=== PATIENT | male | born 1980 | race Caucasian/White ===

== ENCOUNTER → 2016-07-19 | Outpatient (REF) | payer OTHER ==
[2016-07-19 17:45] LABS: ALBUMIN 3.7 GM/DL (3.2-5.2); ALBUMIN/GLOBULIN RATIO 1.03 (1.00-1.93); ALKALINE PHOSPHATASE 96 U/L (45-117); ALT/SGPT 37 U/L (12-78); ANION GAP 11 MEQ/L (8-16); AST/SGOT 17 U/L (15-37); BILIRUBIN,TOTAL 0.4 MG/DL (0.2-1.0); BLOOD UREA NITROGEN 14 MG/DL (7-18); CALCIUM LEVEL 8.6 MG/DL (8.5-10.1); CARBON DIOXIDE LEVEL 25 MEQ/L (21-32); CHLORIDE LEVEL 106 MEQ/L (98-107); CHOLESTEROL LEVEL 147 MG/DL (<200); CREATININE FOR GFR 0.89 MG/DL (0.70-1.30); GLOMERULAR FILTRATION RATE > 60.0 (>60); GLUCOSE, FASTING 112 MG/DL (70-105); SODIUM LEVEL 142 MEQ/L (136-145); TOTAL PROTEIN 7.3 GM/DL (6.4-8.2); TRIGLYCERIDES LEVEL 80 MG/DL (<150)
== END ==
LOC: M SFHCCAPE 08:51
PROVIDERS: ATTEND Physician Assistant
DX: E11.9 Type 2 diabetes mellitus without complications (principal)

== ENCOUNTER → 2016-07-25 | Outpatient (CLI) | payer OTHER ==
--- NOTE | 2016-07-25 15:55 | REP ---
Clinical: Bilateral ankle pain . Technique: AP, lateral, bilateral oblique views of the right and left ankle . Findings: No acute fracture or dislocation. Skeletal structures and joint spaces are intact and normal. Ankle mortise appears stable. No subcutaneous emphysema or radiodense foreign body. Impression: Normal bilateral ankle radiograph series.
== END ==
LOC: M CLY 15:11
PROVIDERS: ATTEND Physician Assistant
DX: M25.571 Pain in right ankle and joints of right foot (principal)

== ENCOUNTER → 2016-10-10 | Outpatient (REF) | payer OTHER ==
[2016-10-10 18:59] LABS: ALBUMIN 4.1 GM/DL (3.2-5.2); ALBUMIN/GLOBULIN RATIO 1.21 (1.00-1.93); ALKALINE PHOSPHATASE 92 U/L (45-117); ALT/SGPT 38 U/L (12-78); ANION GAP 8 MEQ/L (8-16); AST/SGOT 18 U/L (15-37); BILIRUBIN,TOTAL 0.7 MG/DL (0.2-1.0); BLOOD UREA NITROGEN 17 MG/DL (7-18); CARBON DIOXIDE LEVEL 26 MEQ/L (21-32); CHLORIDE LEVEL 107 MEQ/L (98-107); CREATININE FOR GFR 0.84 MG/DL (0.70-1.30); GLOMERULAR FILTRATION RATE > 60.0 (>60); GLUCOSE, FASTING 100 MG/DL (70-105); POTASSIUM SERUM 4.2 MEQ/L (3.5-5.1); SODIUM LEVEL 141 MEQ/L (136-145); TOTAL PROTEIN 7.5 GM/DL (6.4-8.2)
[2016-10-10 20:42] LABS: PROLACTIN 6.9 NG/ML (2.1-17.7)
== END ==
LOC: M SFHCCAPE 11:54
PROVIDERS: ATTEND Physician Assistant
DX: E11.9 Type 2 diabetes mellitus without complications (principal); N52.9 Male erectile dysfunction, unspecified

== ENCOUNTER 2016-10-21 15:30 | Inpatient (IN) | payer OTHER ==
[~2016-10-21] VITALS: Ht 188 cm; Wt 130.2 kg
[2016-10-21] MEDS ORDERED: METF500T PO (15:41)
[2016-10-21] MEDS ORDERED: INVOKANA (15:41)
[2016-10-21] MEDS ORDERED: SERTRALINE (15:41)
[2016-10-21] MEDS ORDERED: LISIPOW (15:41)
[2016-10-21 16:46] LABS: MEAN CORPUSCULAR HEMOGLOBIN 29.6 pg (27.0-33.0); RED CELL DISTRIBUTION WIDTH 13.2 % (11.5-14.5); WHITE BLOOD COUNT 5.8 K/mm3 (4.0-10.0)
[2016-10-21 17:21] LABS: METHADONE URINE NEGATIVE (NEGATIVE)
[2016-10-21 17:32] LABS: ALBUMIN 3.7 GM/DL (3.2-5.2); ALBUMIN/GLOBULIN RATIO 1.12 (1.00-1.93); ALKALINE PHOSPHATASE 85 U/L (45-117); ALT/SGPT 32 U/L (12-78); ANION GAP 7 MEQ/L (8-16); AST/SGOT 15 U/L (15-37); BILIRUBIN,DIRECT 0.2 MG/DL (0.0-0.2); BILIRUBIN,TOTAL 0.5 MG/DL (0.2-1.0); BLOOD UREA NITROGEN 15 MG/DL (7-18); CALCIUM LEVEL 8.8 MG/DL (8.5-10.1); CARBON DIOXIDE LEVEL 26 MEQ/L (21-32); CHLORIDE LEVEL 108 MEQ/L (98-107); GLOMERULAR FILTRATION RATE > 60.0 (>60); GLUCOSE, FASTING 125 MG/DL (70-105); POTASSIUM SERUM 3.8 MEQ/L (3.5-5.1); SODIUM LEVEL 141 MEQ/L (136-145)
[2016-10-21] MEDS ORDERED: METF1000 PO (18:04)
[2016-10-21] MEDS ORDERED: SERT25TA PO (18:04)
[2016-10-21] MEDS ORDERED: LISI-542 PO (18:04)
[2016-10-21] MEDS ORDERED: INVO100T PO (18:04)
[2016-10-21 21:27] VITALS: BP 136/73
[2016-10-21] MEDS ORDERED: traZODone 50 MG TAB PO PRN (21:45)
[2016-10-21] MEDS ORDERED: MOM 30ML SUSPENSION UDC PO PRN (21:45)
[2016-10-21] MEDS ORDERED: MAALOX 30 ML SUSP *UDC PO PRN (21:45)
[2016-10-22 06:25] VITALS: BP 144/80
[2016-10-22] MEDS ORDERED: ENTER DRUG NAME HERE (PATIENT'S OWN MED) PO SCH (09:00)
[2016-10-22] MEDS: metFORMIN (GLUCOPHAGE) 1000 MG TABLET PO SCH ×2 (09:35→17:42)
[2016-10-22] MEDS: LISINOPRIL 5 MG TAB PO SCH (09:35)
[2016-10-22 18:00] VITALS: BP 130/60
[2016-10-22] MEDS: ACETAMINOPHEN TAB 650MG DOSE (2X325MG) PO PRN (21:12)
--- NOTE | 2016-10-23 03:41 | HPE ---
DATE OF ADMISSION: 10/21/2016 HISTORY OF PRESENT ILLNESS: Please refer to psychiatric history and evaluation for further details on this admission. This examination and history is intended for medical issues, which may need treatment, followup or consult on this 35-year-old male. PRIMARY CARE PROVIDER: [facility] [place]. ALLERGIES: 1. SHELLFISH. 2. IODINE. 3. LAMISIL. SOCIAL HISTORY: He is currently , but not living with his . Ethyl alcohol (EtOH) 2-4 times a week. Smokes none. Recreational drug use none. PAST MEDICAL HISTORY: 1. Cya-gmatvtm-qhuuwyept diabetes type 2. 2. Obstructive sleep apnea. 3. Hypertension. PAST SURGICAL HISTORY: 1. Oral surgery for wisdom teeth extraction. 2. Removal of genital warts. HOME MEDICATIONS: - metformin 1000 by mouth twice a day - Invokana 100 mg by mouth daily - lisinopril 5 mg by mouth daily - sertraline 25 mg by mouth daily FAMILY HISTORY: Noncontributory. LABORATORY STUDIES: CBC was normal. Sodium 141, potassium 3.8, chloride 108, BUN was 15, creatinine 0.90. Nonfasting glucose 125. Calcium 8.8. AST 15, ALT 32. TSH was 0.756. REVIEW OF SYSTEMS: 10-system review was done and other than a history of onychomycosis on his great right toenail and two smaller toes, which he has been treated for, he had no physical complaints. PHYSICAL EXAMINATION: 35-year-old cooperative male in no acute distress. Height 74 inches, weight 129 kg, body mass index (BMI) 36.5. Blood pressure 121/48, pulse 79, respirations 18, temperature 98.5. The patient is alert and oriented times three. Pupils equal and react to light. Extraocular muscles intact. Cornea and sclerae clear. Conjunctivae were normal. No facial asymmetry. Pharynx, tongue and gums pink and moist. Tongue is midline. Neck is supple without lymphadenopathy. No thyromegaly, no goiter. Carotids 2+ without bruit. Chest clear to auscultation without wheeze or retraction. Heart is regular. Abdomen is benign. Bowel sounds positive. Genitourinary/rectal: Not done. Extremities show equal strength, full range of motion. No cyanosis, clubbing or edema. Peripheral pulses equal and palpable bilaterally. Skin warm and dry. Few superficial lacerations left inner forearm. No redness or drainage. Cranial nerves III-XII grossly intact. EKG baseline ordered. IMPRESSION/PLAN: 1. Psychiatric plan per psychiatry. 2. History of obstructive sleep apnea. May use his own continuous positive airway pressure (CPAP). 3. Dcg-keckwug-ltmacmedv diabetes type 2. Continue metformin 1000 mg by mouth twice a day with meals, Invokana 100 mg daily. Fingerstick blood sugars twice a day. Consistent carbohydrate diet. 4. History of hypertension. Lisinopril 5 mg by mouth daily. No other acute medical issues.
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
[2016-10-23 06:54] VITALS: BP 128/77
[2016-10-23] MEDS: metFORMIN (GLUCOPHAGE) 1000 MG TABLET PO SCH ×2 (07:24→17:38)
[2016-10-23] MEDS: LISINOPRIL 5 MG TAB PO SCH (07:24)
[2016-10-23] MEDS: ACETAMINOPHEN TAB 650MG DOSE (2X325MG) PO PRN (07:25)
[2016-10-23] MEDS ORDERED: INFLUENZA QUADRIVALENT PF VACCINE 0.5ML SYRINGE/VIAL (90686) IM SCH (09:00)
[2016-10-23] MEDS: DIVALPROEX 500MG *ER* TAB PO SCH ×2 (09:57→21:33)
--- NOTE | 2016-10-23 12:10 | IPN ---
DATE: 10/23/2016 Mr. Galeana is a 35-year-old white male brought to the hospital with his and seen by the mobile crisis team. He has been exhibiting a lot of mood swings, pressured speech, anger outbursts and poor sleep. Mr. Galeana met with me today. He stated that in June his had passed out due to mold allergies. She is staying with friends according to him. He states he has been depressed most of his life. He has a history of superficial cutting of himself. He states his called the crisis hotline. He states he is lonely. He states he wanted to mutilate himself and kill himself. He states no one understands him. 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 He states he had been texting because he was "in a manic phase". He states he was texting his after he had left the movies at 2:00 in the morning. He states his big problem is he wants to control his and his paranoia over her friends. He states he has driven her friends away. MENTAL STATUS EXAMINATION: His speech is rapid. His thought process is scattered with circumferential and circumstantial thinking. He has some loose associations. He has some presence of paranoid thinking. His judgment is poor. His insight is poor. He is fully oriented. Recent and remote memory are intact. Attention and concentration are intact. Mood is dysphoric. Affect is congruent. He has a full fund of knowledge. IMPRESSION: Bipolar disorder, mixed type. Dr. Darnell ordered Seroquel 200 at bedtime and I have begun the patient on Depakote ER 500 twice a day.
[2016-10-23] MEDS: ENTER DRUG NAME HERE (PATIENT'S OWN MED) PO SCH (12:28)
[2016-10-23 18:00] VITALS: BP 118/69
--- NOTE | 2016-10-23 18:04 | ECGEPIP ---
Stationary ECG Study [facility] Test Date: 2016-10-23 Pat Name: CECILIO GREWAL Department: Room: [place] [address] Gender: M [employer]: : 1980 Requested By: Diamante Masters [facility] Order Number: [id number] Reading MD: Max Pretty Measurements Intervals Harvey Rate: 58 P: 32 DE: 195 QRS: -16 QRSD: 119 T: 20 QT: 394 QTc: 390 Interpretive Statements Sinus bradycardia Left axis deviation Rule out prior IWMI No prior tracing for comparison Clinical correlation advised. Electronically Signed On 10-23-2016 18:03:56 EDT by Max Pretty
[2016-10-23] MEDS: QUEtiapine FUMARATE **XR** 200MG TABLET PO SCH (21:34)
[2016-10-24 06:38] VITALS: BP 123/69
[2016-10-24] MEDS: ENTER DRUG NAME HERE (PATIENT'S OWN MED) PO SCH (07:51)
[2016-10-24] MEDS: metFORMIN (GLUCOPHAGE) 1000 MG TABLET PO SCH ×2 (07:51→17:19)
[2016-10-24] MEDS: DIVALPROEX 500MG *ER* TAB PO SCH (07:51)
[2016-10-24] MEDS: LISINOPRIL 5 MG TAB PO SCH (07:52)
[2016-10-24] MEDS ORDERED: DIVALPROEX 500MG *ER* TAB PO ONE (09:00)
[2016-10-24] MEDS ORDERED: DIVALPROEX 500MG *ER* TAB PO SCH (09:00)
--- NOTE | 2016-10-24 11:19 | IPN ---
DATE OF SERVICE: 10/24/2016 Mr. Galeana states today that he is feeling sad. He states last night, he felt he was high. His thoughts were racing, and he was essentially dancing. Today, he feels depressed. I discussed this with him. I have increased his Depakote to 1000 in the morning, the appropriate way to give Depakote ER, and , I will get a blood level. MENTAL STATUS EXAMINATION: His speech is less rapid. His thought process is slow. He does not have circumferential or circumstantial thinking today. No loose associations. He is fully oriented. Recent and remote memory are intact. Attention and concentration are intact. Mood is sad. Affect is congruent. He has a full fund of knowledge. IMPRESSION: Bipolar, mixed type, rapid cycling.
[2016-10-24 18:00] VITALS: BP 121/66
[2016-10-24] MEDS: QUEtiapine FUMARATE **XR** 200MG TABLET PO SCH (21:15)
[2016-10-25 06:41] VITALS: BP 128/68
[2016-10-25] MEDS: metFORMIN (GLUCOPHAGE) 1000 MG TABLET PO SCH ×2 (07:51→17:12)
[2016-10-25] MEDS: ENTER DRUG NAME HERE (PATIENT'S OWN MED) PO SCH (09:00)
[2016-10-25] MEDS: DIVALPROEX 500MG *ER* TAB PO SCH (09:01)
[2016-10-25] MEDS: LISINOPRIL 5 MG TAB PO SCH (09:01)
--- NOTE | 2016-10-25 10:19 | IPN ---
DATE: 10/25/2016 I spoke with Stuart Galeana's today. She discussed how in the last few weeks Mr. Galeana had been out of control to the point of having some difficulties with his children and being reported to Child Protective Services (CPS). She stated if "he had not had a breakdown", she would have had him possibly arrested and filed protective orders. Mr. Galeana has been feeling sad. He has expressed that to some of the staff. He states he slept well. He continues on Depakote 1000 and we will be getting a blood level this Sunday. We will be monitoring his mood. MENTAL STATUS: Speech was less rapid. Thought processes were less slow. No circumferential or circumstantial thinking. No loose associations. Patient is fully oriented. Recent and remote memory are intact. Attention and concentration intact. Mood is sad. Affect is congruent. He has a full fund of knowledge. LABORATORY: CBC is unremarkable. Serum chemistries as described. Mildly increased fasting glucose. Toxicology screen was negative. IMPRESSION: Bipolar disorder, mixed type. PLAN: Observation and continue medication. will continue to supply us with input as to his baseline.
[2016-10-25] MEDS: QUEtiapine FUMARATE **XR** 200MG TABLET PO SCH (21:39)
[2016-10-26 06:31] VITALS: BP 140/74
[2016-10-26] MEDS: DIVALPROEX 500MG *ER* TAB PO SCH (08:17)
[2016-10-26] MEDS: ENTER DRUG NAME HERE (PATIENT'S OWN MED) PO SCH (08:17)
[2016-10-26] MEDS: metFORMIN (GLUCOPHAGE) 1000 MG TABLET PO SCH ×2 (08:18→17:40)
[2016-10-26] MEDS: LISINOPRIL 5 MG TAB PO SCH (08:18)
[2016-10-26] MEDS: ACETAMINOPHEN TAB 650MG DOSE (2X325MG) PO PRN (08:20)
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
[2016-10-26 18:00] VITALS: BP 117/61
[2016-10-26] MEDS: QUEtiapine 300 MG XR TABLET(SEROQUEL XR) PO SCH (22:00)
[2016-10-27 05:54] VITALS: BP 130/56
[2016-10-27] MEDS: DIVALPROEX 500MG *ER* TAB PO SCH (08:03)
[2016-10-27] MEDS: metFORMIN (GLUCOPHAGE) 1000 MG TABLET PO SCH ×2 (08:04→17:23)
[2016-10-27] MEDS: LISINOPRIL 5 MG TAB PO SCH (08:04)
[2016-10-27] MEDS: ENTER DRUG NAME HERE (PATIENT'S OWN MED) PO SCH (08:04)
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
[2016-10-27 18:00] VITALS: BP 115/71
[2016-10-27] MEDS: QUEtiapine 300 MG XR TABLET(SEROQUEL XR) PO SCH (21:37)
[2016-10-27] MEDS: ACETAMINOPHEN TAB 650MG DOSE (2X325MG) PO PRN (21:48)
[2016-10-28 06:00] VITALS: BP 129/76
[2016-10-28] MEDS: metFORMIN (GLUCOPHAGE) 1000 MG TABLET PO SCH ×2 (08:15→17:01)
[2016-10-28] MEDS: LISINOPRIL 5 MG TAB PO SCH (08:15)
[2016-10-28] MEDS: ENTER DRUG NAME HERE (PATIENT'S OWN MED) PO SCH (08:15)
[2016-10-28] MEDS: DIVALPROEX 500MG *ER* TAB PO SCH (08:15)
[2016-10-28 18:00] VITALS: BP 117/67
[2016-10-28] MEDS: QUEtiapine 300 MG XR TABLET(SEROQUEL XR) PO SCH (21:21)
[2016-10-28] MEDS: ACETAMINOPHEN TAB 650MG DOSE (2X325MG) PO PRN (21:22)
[2016-10-29 06:50] VITALS: BP 121/57
[2016-10-29] MEDS: DIVALPROEX 500MG *ER* TAB PO SCH (08:45)
[2016-10-29] MEDS: ACETAMINOPHEN TAB 650MG DOSE (2X325MG) PO PRN (08:45)
[2016-10-29] MEDS: metFORMIN (GLUCOPHAGE) 1000 MG TABLET PO SCH ×2 (08:45→17:12)
[2016-10-29] MEDS: LISINOPRIL 5 MG TAB PO SCH (08:45)
[2016-10-29] MEDS: ENTER DRUG NAME HERE (PATIENT'S OWN MED) PO SCH (08:45)
[2016-10-29 18:00] VITALS: BP 120/66
[2016-10-29] MEDS: QUEtiapine 300 MG XR TABLET(SEROQUEL XR) PO SCH (21:28)
[2016-10-30 06:38] VITALS: BP 108/56
[2016-10-30] MEDS: DIVALPROEX 500MG *ER* TAB PO SCH (09:01)
[2016-10-30] MEDS: DIVALPROEX 250MG *ER* TAB PO SCH (09:01)
[2016-10-30] MEDS: LISINOPRIL 5 MG TAB PO SCH (09:02)
[2016-10-30] MEDS: ENTER DRUG NAME HERE (PATIENT'S OWN MED) PO SCH (09:02)
[2016-10-30] MEDS: metFORMIN (GLUCOPHAGE) 1000 MG TABLET PO SCH ×2 (09:02→17:38)
--- NOTE | 2016-10-30 10:24 | IPN ---
DATE: 10/29/2016 I spoke with Dior Lissett today. He feels his mood is more stable. He feels his muscles are slightly weak, however, laboratory examination reveals a depakote level of 37.6, which is low. This was measured at the trough level. I will increase his Depakote to 1250 mg. DIAGNOSIS: Bipolar disorder, mixed type. MTDD
--- NOTE | 2016-10-30 14:04 | IPN ---
DATE: 10/30/2016 Mr. Galeana today states that his kids are not presently at his house but the plan is for him and his , for him to get an apartment. There is an order of protection on him from his children that may last a year. He states that will be reviewed each time there is a court appearance. The discharge plan that he and his have come up with regarding the legal issues is that he gets a new apartment on his own. His and children will live at their home. His states, according to him, that she is still slightly scared of him but notices that his rosy has improved. He has noticed that his visited yesterday and when she is depressed, he becomes depressed but states that is not occurring now and that he is noticing no significant mood changes. He states he is usually susceptible to other's moods that he is close to. The patient states he is less dysphoric, and although he states when he is talking to someone he feels slightly increased in speech but that it has decreased significantly. MENTAL STATUS EXAMINATION: His speech is reasonably within normal speed, only slightly increased. Thought processes are logical. No loose associations. No abnormal or psychotic thoughts. Judgment and insight are good. Orientation in three spheres is good. No disturbance of recent and remote memory. Attention and concentration improved. Fund of knowledge is full. Mood is fair to neutral. Affect is congruent. IMPRESSION: Bipolar disorder, manic type. MEDICATIONS: At this time, Depakote 1250 mg in the morning ER and we will be getting a Depakote level.
[2016-10-30 18:00] VITALS: BP 121/63
[2016-10-30] MEDS: QUEtiapine 300 MG XR TABLET(SEROQUEL XR) PO SCH (21:31)
[2016-10-31 06:30] VITALS: BP 112/59
[2016-10-31] MEDS: ENTER DRUG NAME HERE (PATIENT'S OWN MED) PO SCH (08:09)
[2016-10-31] MEDS: metFORMIN (GLUCOPHAGE) 1000 MG TABLET PO SCH ×2 (08:09→17:38)
[2016-10-31] MEDS: DIVALPROEX 500MG *ER* TAB PO SCH (08:09)
[2016-10-31] MEDS: DIVALPROEX 250MG *ER* TAB PO SCH (08:09)
[2016-10-31] MEDS: ACETAMINOPHEN TAB 650MG DOSE (2X325MG) PO PRN (08:10)
[2016-10-31] MEDS: LISINOPRIL 5 MG TAB PO SCH (08:10)
[2016-10-31] MEDS ORDERED: DIVALPROEX 250MG *ER* TAB PO ONE (10:00)
--- NOTE | 2016-10-31 16:01 | IPN ---
DATE: 10/31/2016 Mr. Galeana's speech is still rapid. Feedback from his still indicates that he is not at baseline. I have increased his medication to Depakote 15 mg every morning. I will be getting a Depakote level on Sunday. Meeting is scheduled with Child Protective Services (CPS). The patient continues to report rosy and his speech continues still somewhat rapid. We are attempting to reach his to discuss his progress in treatment and to get her feedback on baseline behavior. MENTAL STATUS EXAMINATION: Speech continues rapid. Thought processes are more logical. No loose associations. No psychotic thoughts. Insight and judgment are fair. He is fully oriented. Recent and remote memory intact. Attention and concentration are fair. Fund of knowledge is good. The patient's mood is still elevated. Affect bright. The patient is frightened of the effect he had on his children when he was in a manic state. MEDICATIONS: Continue as stated. We will be getting a blood level and Seroquel has been increased to 400 mg at bedtime.
[2016-10-31 18:00] VITALS: BP 110/60
[2016-10-31] MEDS ORDERED: QUEtiapine FUMARATE **XR** 200MG TABLET PO SCH (21:00)
[2016-11-01 06:07] VITALS: BP 121/59
[2016-11-01] MEDS: DIVALPROEX 500MG *ER* TAB PO SCH (08:13)
[2016-11-01] MEDS: ENTER DRUG NAME HERE (PATIENT'S OWN MED) PO SCH (08:14)
[2016-11-01] MEDS: LISINOPRIL 5 MG TAB PO SCH (08:14)
[2016-11-01] MEDS: metFORMIN (GLUCOPHAGE) 1000 MG TABLET PO SCH ×2 (08:14→18:04)
--- NOTE | 2016-11-01 14:32 | IPN ---
DATE: 11/01/2016 I met with Stuart Galeana and his , both yesterday and today. She is considerably pleased with his improvement and feels he is returning to baseline. A Depakote level has been ordered. He continues on Seroquel 400 mg nightly and Depakote 1500 mg in the morning. He complains of some tiredness. I will plan to decrease his Seroquel. Discharge perhaps by Sunday. MENTAL STATUS EXAMINATION: Speech is normal speed. Thought processes are logical. No loose associations. No psychotic thoughts. Judgment, insight improved. Fully oriented. Recent and remote memory intact. Attention and concentration are full. Full fund of knowledge. Mood is good. Affect is neutral.
[2016-11-01 18:00] VITALS: BP 133/70
[2016-11-01] MEDS: QUEtiapine FUMERATE XR 50 MG TABER PO SCH (21:46)
[2016-11-02 06:14] VITALS: BP 130/76
[2016-11-02] MEDS: DIVALPROEX 500MG *ER* TAB PO SCH (08:11)
[2016-11-02] MEDS: ENTER DRUG NAME HERE (PATIENT'S OWN MED) PO SCH (08:12)
[2016-11-02] MEDS: LISINOPRIL 5 MG TAB PO SCH (08:12)
[2016-11-02] MEDS: metFORMIN (GLUCOPHAGE) 1000 MG TABLET PO SCH ×2 (08:12→17:22)
--- NOTE | 2016-11-02 10:04 | IPN ---
DATE: 11/02/2016 I met with Mony Galeana. His only complaint has been tiredness. I decreased his Seroquel last night and he is significantly improved this morning with no tiredness. He and feel he is returning to baseline and discharge planning has begun to plan tomorrow. I am waiting for a Depakote level which I have ordered for Sunday. MENTAL STATUS EXAMINATION: Speech is normal speed. Thought process is urological. No loose associations. No psychotic thoughts. Judgment and insight improved. Fully oriented. Recent and remote memory intact. Attention and concentration are full. Full fund of knowledge. Mood is good. Affect is neutral. PRESENT MEDICATIONS INCLUDE: - Seroquel 100 at bedtime - Depakote 1500 mg in the morning Patient is on lisinopril and metformin also. Patient takes Invokana. DIAGNOSIS: Bipolar disorder, manic type.
[2016-11-02 18:00] VITALS: BP 142/77
[2016-11-02] MEDS: QUEtiapine FUMERATE XR 50 MG TABER PO SCH (21:21)
[2016-11-03 06:56] VITALS: BP 124/62
[2016-11-03] MEDS ORDERED: LISI-542 PO (07:47)
[2016-11-03] MEDS ORDERED: SERO50TA3 PO (07:47)
[2016-11-03] MEDS ORDERED: DEPA500T2 PO (07:47)
[2016-11-03] MEDS ORDERED: GLUC1000 PO (07:47)
[2016-11-03 08:03] VITALS: BP 127/73
[2016-11-03] MEDS: LISINOPRIL 5 MG TAB PO SCH (08:03)
[2016-11-03] MEDS: ENTER DRUG NAME HERE (PATIENT'S OWN MED) PO SCH (08:04)
[2016-11-03] MEDS: metFORMIN (GLUCOPHAGE) 1000 MG TABLET PO SCH (08:04)
[2016-11-03] MEDS: DIVALPROEX 500MG *ER* TAB PO SCH (08:04)
--- NOTE | 2016-11-03 09:05 | DSES ---
DATE OF ADMISSION: 10/21/2016 DATE OF DISCHARGE: 11/03/16 This is a 35-year-old white male was admitted by Dr. Butcher. Patient apparently was seen by mobile crisis team and was told to come to the emergency room. The patient has been exhibiting significant mood swings, pressured speech , anger outbursts, poor sleep. He has also at times been feeling depressed, hopeless and helpless. He thinks that he might be "bipolar". Recently he made superficial cuts to his left forearm with scissors. Recently he tried to "pop his eyes out with his fingers". He stated he was thinking of jumping off a lift at work. He has never had any previous psychiatric treatment but recently his primary care provider started him on Zoloft 25 mg. PAST PSYCHIATRIC HISTORY: There was no past psychiatric history either as an inpatient or outpatient. He states he has never made suicide attempts in the past. Patient had a history of counseling 20 years ago when his parents were . Patient states counselor in the past has told him he had attention deficit disorder. Patient states in the past, he has wanted to kill himself but never did and mostly this is because of never have made an attempt and mostly it is because of fear of pain. FAMILY HISTORY: Mother had problems with depression. Both parents had problems with alcohol abuse. Patient thought his father might be bipolar. Father was never diagnosed. MEDICAL HISTORY: Positive for diabetes and sleep apnea. No significant history of abuse nor posttraumatic stress disorder symptoms. SUBSTANCE ABUSE: Denies alcohol or drug use. ADDITIONAL INFORMATION: states that she was frightened of him as well as frightening the children. It is noted that Child Protective Services (CPS) was involved and that the patient had an order of protection placed on him in order to protect his children and . Patient stated to me that in June, his had passed out due to mold allergies in the house and she had been staying with friends according to him. He states he was depressed most of his life. He states his called the crisis hotline due to patient wanting to mutilate himself, kill himself and frightening her. 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 Patient has been texting due to being "in a manic phase". MENTAL STATUS EXAMINATION: Patient was found to have rapid speech, scattered through process, circumferential and circumstantial thickening with loose associations and some paranoid thinking. His judgment is poor. His insight was poor. He was fully oriented. Recent and remote memory were intact. Attention and concentration were intact. Mood was dysphoric. Affect was congruent and patient had a full fund of knowledge. DIAGNOSIS: Bipolar disorder, mixed type as patient was not only manic but had dysphoric characteristic to his rosy. COURSE OF TREATMENT: Patient was started on Depakote in increasing doses. His diabetic management continued. His Seroquel was increased up to 400 mg in addition to his Depakote which was finally raised to 1500 mg and due to tiredness, his Seroquel was reduced to 100 mg. His mental status and condition improved significantly. MENTAL STATUS ON DISCHARGE: His speech was normal. There was no disturbance of thought process. There were no loose associations. No abnormal psychotic thoughts. Judgment and insight were intact. He was fully oriented. No disturbance of recent and remote memory. Attention and concentration were improved. Full fund of knowledge. Mood was neutral. Affect was congruent. Valproic acid on 11/03/2016 was 57.9. Outpatient referrals were made. Meetings with patient's indicated that she felt he was significantly improved and patient was discharged to appropriate followup by discharge planning. DISCHARGE DIAGNOSIS: Bipolar disorder, mixed type. MTDD
== END 2016-11-03 16:30 | disposition home or self-care (01) | DRG 885 ==
LOC: M ED 16:56 → M ED INP 18:56 → M PSY 20:32
PROVIDERS: ADMIT Psychiatry & Neurology Psychiatry; ATTEND Psychiatry & Neurology Child & Adolescent Psychiatry
DX: F31.60 Bipolar disorder, current episode mixed, unspecified (principal); E11.9 Type 2 diabetes mellitus without complications; G47.33 Obstructive sleep apnea (adult) (pediatric); I10 Essential (primary) hypertension; Z88.8 Allergy status to other drugs, medicaments and biological substances; Z91.013 Allergy to seafood; Z79.899 Other long term (current) drug therapy

== ENCOUNTER → 2016-11-14 | Outpatient (CLI) | payer OTHER ==
[~2016-11-14] MED LIST: DEPA500T2 PO; GLUC1000 PO; INVO100T PO; INVOKANA; LISI-542 PO; LISIPOW; METF1000 PO; METF500T PO; SERO50TA3 PO; SERT25TA PO; SERTRALINE
== END ==
LOC: M SMT 08:55
PROVIDERS: ATTEND Nurse Practitioner Family
DX: E29.1 Testicular hypofunction (principal)

== ENCOUNTER → 2016-12-06 | Outpatient (CLI) | payer OTHER ==
[2016-12-06 18:49] LABS: ALBUMIN 3.5 GM/DL (3.2-5.2); BILIRUBIN,DIRECT 0.1 MG/DL (0.0-0.2); BILIRUBIN,TOTAL 0.6 MG/DL (0.2-1.0)
== END ==
LOC: M SMT 13:55
PROVIDERS: ATTEND Psychiatry & Neurology Psychiatry
DX: Z91.19 Patient's noncompliance with other medical treatment and regimen (principal)

== ENCOUNTER → 2017-01-03 | Outpatient (CLI) | payer OTHER | LOC: M SMT 14:33 | PROVIDERS: ATTEND Psychiatry & Neurology Psychiatry | DX: Z91.19 Patient's noncompliance with other medical treatment and regimen (principal) ==

== ENCOUNTER → 2017-02-14 | Outpatient (REF) | payer OTHER ==
[~2017-02-14] MED LIST changes: -METF1000 PO; +METF10004 PO; -METF500T PO; +METF500T13 PO
[2017-02-14 18:03] LABS: ALBUMIN 3.2 GM/DL (3.2-5.2); ALBUMIN/GLOBULIN RATIO 0.94 (1.00-1.93); ALKALINE PHOSPHATASE 56 U/L (45-117); ALT/SGPT 21 U/L (12-78); ANION GAP 7 MEQ/L (8-16); AST/SGOT 12 U/L (15-37); BILIRUBIN,TOTAL 0.3 MG/DL (0.2-1.0); BLOOD UREA NITROGEN 14 MG/DL (7-18); CALCIUM LEVEL 8.8 MG/DL (8.5-10.1); CARBON DIOXIDE LEVEL 29 MEQ/L (21-32); CHLORIDE LEVEL 108 MEQ/L (98-107); CREATININE FOR GFR 0.84 MG/DL (0.70-1.30); GLOMERULAR FILTRATION RATE > 60.0 (>60); GLUCOSE, FASTING 101 MG/DL (70-105); POTASSIUM SERUM 4.6 MEQ/L (3.5-5.1); SODIUM LEVEL 144 MEQ/L (136-145); TOTAL PROTEIN 6.6 GM/DL (6.4-8.2)
== END ==
LOC: M SFHCLERA 14:43
PROVIDERS: ATTEND Physician Assistant
DX: E11.9 Type 2 diabetes mellitus without complications (principal); E29.1 Testicular hypofunction

== ENCOUNTER → 2017-05-03 | Outpatient (CLI) | payer OTHER ==
[2017-05-03 11:47] LABS: ALBUMIN 3.3 GM/DL (3.2-5.2); ALBUMIN/GLOBULIN RATIO 0.92 (1.00-1.93); ALKALINE PHOSPHATASE 70 U/L (45-117); ALT/SGPT 24 U/L (12-78); AST/SGOT 17 U/L (15-37); BILIRUBIN,DIRECT < 0.1 MG/DL (0.0-0.2); BILIRUBIN,TOTAL 0.3 MG/DL (0.2-1.0); TOTAL PROTEIN 6.9 GM/DL (6.4-8.2)
[2017-05-07 11:10] LABS: HLA CLASS 1 ANTIBODY NEGATIVE; IIb/IIIa ANTIBODY NEGATIVE
[2017-05-07 11:13] LABS: Ia/IIa ANTIBODY NEGATIVE
== END ==
LOC: M LRY 09:11
PROVIDERS: ATTEND Psychiatry & Neurology Psychiatry
DX: Z51.81 Encounter for therapeutic drug level monitoring (principal); Z79.899 Other long term (current) drug therapy